=== PATIENT | male | born 1980 | race Caucasian/White ===

== ENCOUNTER 2018-04-29 18:31 | Emergency (ER) | payer OTHER ==
[~2018-04-29] VITALS: Ht 170.2 cm; Wt 83.0 kg
[~2018-04-29 18:31] MED LIST: CETI10TA15 PO; FEXO-124 PO; HYDR-569 PO
[2018-04-29] MEDS ORDERED: CLIN150C8 PO (22:40)
[2018-04-29] MEDS ORDERED: HYDR-3965 PO (22:40)
[2018-04-29 22:54] VITALS: BP 125/89
== END 2018-04-29 22:55 | disposition home or self-care (01) ==
LOC: ER 18:32
DX: S00.83XA Contusion of other part of head, initial encounter (principal); F12.90 Cannabis use, unspecified, uncomplicated; Z60.2 Problems related to living alone; Z98.890 Other specified postprocedural states; Z90.89 Acquired absence of other organs; Z79.2 Long term (current) use of antibiotics; Z79.899 Other long term (current) drug therapy; X58.XXXA Exposure to other specified factors, initial encounter; Y93.89 Activity, other specified; Y92.89 Other specified places as the place of occurrence of the external cause; Y99.8 Other external cause status
CPT/HCPCS: 70486; 99284

== ENCOUNTER 2022-06-06 17:22 | Emergency (ER) | payer SELFPAY ==
[~2022-06-06] VITALS: Ht 170.2 cm; Wt 81.8 kg
[~2022-06-06 17:22] MED LIST changes: +CLIN150C8 PO; -FEXO-124 PO; +FEXO-271 PO; +HYDR-4383 PO; -HYDR-569 PO
--- NOTE | 2022-06-06 17:55 | NUR ---
EKG [id number]
[2022-06-06] MEDS ORDERED: normal saline 1000ml 1,000 ML IV ONE (18:15)
[2022-06-06 18:42] LABS: BASOPHILS # (AUTO) 0.1 X10'3 (0-0.2); BASOPHILS % (AUTO) 0.5 % (0-1); EOSINOPHILS % (AUTO) 0.1 % (0-6); HEMATOCRIT 41.3 % (42.0-52.0); HEMOGLOBIN 14.2 g/dl (14.0-17.9); LYMPHOCYTES # (AUTO) 1.7 X10'3 (1.1-4.8); LYMPHOCYTES % (AUTO) 10.4 % (21-51); MEAN CORPUSCULAR HEMOGLOBIN 29.6 PG (27.0-31.0); MEAN CORPUSCULAR HGB CONC 34.5 g/dL (33.0-36.5); MEAN CORPUSCULAR VOLUME 85.9 FL (78-98); NEUTROPHILS # (AUTO) 13.3 X10'3 (1.8-7.7); PLATELET COUNT 312 X10'3 (140-440); RED CELL DISTRIBUTION WIDTH 13.1 % (11.5-14.5); WHITE BLOOD COUNT 16.1 X10'3 (4.5-11.0)
[2022-06-06 18:55] LABS: ALANINE AMINOTRANSFERASE 42 U/L (12-78); ALBUMIN 4.6 G/DL (3.4-5.0); ALBUMIN/GLOBULIN RATIO 1.2 (1.1-1.5); ALKALINE PHOSPHATASE 102 IU/L (46-116); ANION GAP 11 (8-16); ASPARTATE AMINO TRANSFERASE 39 U/L (10-37); BLOOD UREA NITROGEN 22 MG/DL (7-18); BUN/CREATININE RATIO 12.8 (5.4-32.0); CHLORIDE 102 MMOL/L (99-107); CREATININE 1.72 MG/DL (0.60-1.10); GLUCOSE 95 MG/DL (70-104); POTASSIUM 4.2 MMOL/L (3.5-5.1); SODIUM 138 MMOL/L (135-145); TOTAL CARBON DIOXIDE 24.9 MMOL/L (24-32); TOTAL PROTEIN 8.3 G/DL (6.4-8.2); eGFR 44 ML/MIN
[2022-06-06 19:09] LABS: CREATINE KINASE 1204 U/L (39-308)
[2022-06-06 19:35] LABS: CLARITY,URINE CLEAR (Clear); COLOR,URINE YELLOW (Yellow); GLUCOSE, URINE NEGATIVE (Neg); KETONES,URINE TRACE mg/dl (Neg); LEUKOCYTE ESTERASE ,URINE NEGATIVE (Neg); NITRITES, URINE NEGATIVE (Neg); OCCULT BLOOD,URINE TRACE-INTACT (Neg); PROTEIN,URINE NEGATIVE (Neg); UROBILINOGEN,URINE 0.2 E.U/dL (0.2-1.0)
[2022-06-06 19:36] LABS: UA COLLECTION TYPE URINAL
[2022-06-06 19:49] LABS: RBC,URINE 0-2 /HPF (0-2); WBC,URINE NONE SEEN /HPF (0-4)
[2022-06-06 19:50] LABS: BACTERIA,URINE NONE SEEN /HPF (Neg); SQUAMOUS EPITHELIAL CELL,UR FEW /LPF (FEW)
[2022-06-06] MEDS ORDERED: normal saline 1000ML IV soln IVB ONE (19:50)
[2022-06-06] MEDS ORDERED: sodium bicarbonate (8.4%) 1 mEq/ml syringe IV ONE (19:50)
[2022-06-06 20:42] VITALS: BP 133/91
== END 2022-06-06 20:45 | disposition home or self-care (01) ==
LOC: ER 17:23
DX: T67.2XXA Heat cramp, initial encounter (principal); N17.8 Other acute kidney failure; E86.0 Dehydration; M62.82 Rhabdomyolysis; L55.9 Sunburn, unspecified; F12.10 Cannabis abuse, uncomplicated; Z90.49 Acquired absence of other specified parts of digestive tract; Z79.899 Other long term (current) drug therapy; X58.XXXA Exposure to other specified factors, initial encounter; Y93.89 Activity, other specified; Y92.89 Other specified places as the place of occurrence of the external cause; Y99.8 Other external cause status
CPT/HCPCS: 36415; 80053; 81001; 82550; 85025; 93005; 96361; 96374; 99284; J3490; J7030